=== PATIENT | male | born 1995 | race African-American/Black ===

== ENCOUNTER 2016-09-20 22:40 | Observation (INO) | payer OTHER ==
--- NOTE | ~2016-09-20 | EKG ---
PATIENT: BRITTANY RODRIGUEZ UNIT #: [id number] Ventricular Rate: 83 BPM Atrial Rate: 83 BPM P-R Interval: 180 ms QRS Duration: 100 ms Q-T Interval: 370 ms QTC Calculation(Bezet): 434 ms P Midland: 42 degrees Calculated R Midland: 61 degrees Calculated T Midland: 47 degrees Diagnosis Line: Normal sinus rhythm Diagnosis Line: Normal ECG Diagnosis Line: No previous ECGs available Diagnosis Line: Confirmed by PAXTON PETERSON MD ([id number]) on 09/22/2016 Diagnosis Line: 4:29:45 PM INTERPRETING MD: NICHOLAS HORVATH
--- NOTE | ~2016-09-20 | HP ---
Unit #: [id number] #: [id number] Patient: BRITTANY RODRIGUEZ [id number] [address] [place], [place] [address] [id number] I MR#: [id number] NAME: BRITTANY RODRIGUEZ. ROOM: 05287 Age: 20 Sex: M Admission Date: 09/21/2016 : 1995 Attending Physician: Josué Sanchez M.D. Primary Care Physician: No Primary Care Physician HISTORY AND PHYSICAL CHIEF COMPLAINT Overdose. HISTORY OF PRESENT ILLNESS Patient is a 20-year-old male who I am evaluating in the emergency department. He is completely obtunded and was brought in this way. He is unable to provide me with any sort of history whatsoever. The patient's tox screen is entirely negative, however. PAST MEDICAL HISTORY I am unable to obtain given the patient's presentation. Medical records from [facility] indicate he has a history of chronic paranoid schizophrenia with no known medical problems. PAST SURGICAL HISTORY None. HOME MEDICATIONS Unknown. ALLERGIES Pineapples, Geodon, Abilify, cinnamon, Thorazine. REVIEW OF SYSTEMS Unable to obtain. PHYSICAL EXAMINATION VITAL SIGNS: Temperature 97.6, pulse 78, blood pressure 128/68. GENERAL: A 20-year-old male who is somewhat obtunded, who appears stated age. HEENT: Pupils equally round. Extraocular movements intact. Mucous membranes dry. NECK: Supple. No JVD. No lymphadenopathy. CARDIAC: Regular rate and rhythm. No murmurs, gallops, or rubs. LUNGS: Clear to auscultation bilaterally. ABDOMEN: Nontender, nondistended. Positive bowel sounds. EXTREMITIES: No clubbing, cyanosis, or edema. They are warm and dry. PSYCHIATRIC: Unable to obtain, the patient is not cooperative with the exam. NEUROLOGIC: The patient is arousable and answered two questions for me, both orientation questions and his responses were incorrect. Otherwise, he has gone back to sleep and refuses to answer any more questions. SKIN: No rashes, bruises, or ulcers. MUSCULOSKELETAL: No muscle swelling. No joint swelling. Unit #: [id number] #: [id number] Patient: BRITTANY RODRIGUEZ DIAGNOSTIC STUDIES LABORATORY: Chemistries are normal. Depakene level is 36. CBC is normal. As mentioned, tox screen is negative. IMAGING: None. ASSESSMENT AND PLAN 1. Encephalopathy: The cause is not entirely clear at this time. It is unclear if this is some sort of drug overdose which is it initially presumed to be or if this is some sort of psychosis. The patient's vital signs are stable and he has been started on IV fluids. Psych consult has been obtained. The patient was placed on a 72-hour hold in the emergency department. 2. Prophylaxis: The patient will be started on sequential compression devices. Dictated by Josué Sanchez M.D. MIKE/cecil TD: 09/21/2016 15:51 JOB #: [id number] HISTORY AND PHYSICAL Page 1 of 1 X Josué Sanchez MD HISTORY AND PHYSICAL
--- NOTE | ~2016-09-20 | CO ---
Unit #: [id number] #: [id number] Patient: LEO RODRIGUEZ [id number] [facility] [address] [facility]. [place], [place] [address] [id number] I MR#: [id number] NAME: LEO RODRIGUEZ. ROOM: 568 Age: 20 Sex: M Admission Date: 09/21/2016 : 1995 Attending Physician: Bhumi Peacock M.D. Consultation Date: 09/22/2016 CONSULTATION REPORT JOB NOTE: VERIFY MRN. INFORMANTS The patient reliability, fair; chart reliability, good. CHIEF COMPLAINT "I don't know." HISTORY OF PRESENT ILLNESS Leo Rodriguez is a 20-year-old male, seen on 09/22/2016 at [facility] on 568, bed 1. The patient was compliant, cooperative, currently has a sitter. The patient was unable to give any reliable information. Reports that he has a history of receiving treatment from [facility]. The patient was apparently admitted after an overdose. The patient was drowsy and altered mental status at the time of admission, but pleasant and cooperative during interview. Guarded and paranoid during interview. The patient has a history of chronic paranoid schizophrenia and reports takes medication regularly. Currently denied any thoughts of harming self or others, but disorganized behavior, disorganized thought process, guarded, and paranoid. PAST PSYCHIATRIC HISTORY Remarkable for history of previous treatment at [facility] as a child as well as adult. Last admission was in 2015. MEDICAL HISTORY Unremarkable. MEDICATION HISTORY None. ALLERGIES No known drug allergies. FAMILY HISTORY AND SOCIAL HISTORY The patient has a poor support system. The patient was in a residential program. No history of any abuse. The patient denied any use of any drugs or alcohol. REVIEW OF SYSTEMS Complete review of systems is unremarkable. MENTAL STATUS EXAMINATION General appearance; the patient thin built, casually dressed. Attention Unit #: [id number] #: [id number] Patient: LEO RODRIGUEZ span and concentration, poor. Speech, disorganized. Oriented in place and self. Mood and affect, labile. Thought process, circumstantial. Thought content, guarded and paranoid. Denied any thoughts of harming self or others, but recent overdose. Recent and remote memory, poor. Language, able to name object and repeat phrases. Fund of knowledge, poor. Insight and judgment, impaired. DIAGNOSES Psychiatric: Schizophrenia, chronic paranoid type, F20.0; mood disorder, not otherwise specified, F32.9. Secondary diagnosis: Deferred. Medical diagnosis: Please refer to H and P. Stressors: Psychosocial stressors. ASSESSMENT/PLAN 1. Supportive psychotherapy and psychoeducation provided to the patient. 2. Educated about benefits and side effects of medication and course and prognosis of illness. 3. Recommending at this time, the patient to be transferred to [facility] for inpatient psychiatric treatment. Please feel free to call if any questions, telephone #[phone]. Dictated by... Srinivasan Weems/rosendo TD: 09/24/2016 02:02 JOB #: [id number] CONSULTATION REPORT Page 1 of 1 X Roni Monae MD X CONSULTATION REPORT
[2016-09-20 23:02] LABS: BASOPHIL% 0.4 % (0-2.5); EOSINOPHIL# 0.1 X10e3 (0-0.7); EOSINOPHIL% 0.7 % (0.0-7.0); HEMOGLOBIN 13.2 gm/dL (13.0-16.0); LYMPHOCYTE# 2.7 X10e3 (1.0-3.5); MEAN CELL VOLUME 86.1 FL (83-96); MEAN CORPUSCULAR HEMOGLOBIN 27.1 PG (28-34); MEAN CORPUSCULAR HGB CONC 31.5 g/dL (30-36); MEAN PLATELET VOLUME 11.2 FL (6.5-11.5); MONOCYTE# 0.7 X10e3 (0-1.0); MONOCYTE% 7.3 % (3.0-12.0); NEUTROPHIL# 5.4 X10e3 (1.5-7.1); NEUTROPHIL% 60.6 % (40-75); PLATELET COUNT 177 X10e3 (140-420); RED BLOOD COUNT 4.88 X10e (3.90-5.60); RED CELL DISTRIBUTION WIDTH 14.1 % (11.0-15.5); WHITE BLOOD COUNT 8.9 X10e3 (4.0-10.5)
[2016-09-20 23:04] LABS: DIFF IND NO
[2016-09-20 23:28] LABS: ALBUMIN SERUM 4.1 g/dL (3.5-5.0); ALKALINE PHOSPHATASE 70 U/L (32-92); ALT (SGPT) 21 U/L (10-40); AST (SGOT) 31 U/L (10-42); BILIRUBIN, DIRECT 0.1 mg/dL (0.0-0.2); BILIRUBIN,INDIRECT 0.6 mg/dL (0.0-0.9); BILIRUBIN,TOTAL 0.7 mg/dL (0.2-2.0); BLOOD UREA NITROGEN 12 mg/dL (9-23); CALCIUM SERUM 9.2 mg/dL (8.4-10.2); CARBON DIOXIDE 26 mmol/L (22-31); CHLORIDE 103 mmol/L (100-111); CREATININE SERUM 1.1 mg/dL (0.6-1.4); DEPAKENE (VALPROIC ACID) 36 ug/mL (50-125); GLOM FILT RATE Estimated 110.7 mL/min (>60); GLUCOSE FASTING 123 mg/dL (70-110); POTASSIUM 3.6 mmol/L (3.5-5.1); SALICYLATE <4.0 mg/dL; SODIUM 139 mmol/L (135-145)
[2016-09-20 23:29] LABS: ACETAMINOPHEN <10 ug/mL; ALCOHOL BLOOD <5 mg/dL (0)
[2016-09-21 14:56] LABS: AMPHETAMINE NEG (NEG); BARBITURATES NEG (NEG); BENZODIAZEPINES NEG (NEG); COCAINE NEG (NEG); MARIJUANA NEG (NEG); OPIATES NEG (NEG); TRICYCLIC ANTIDEPRESSANTS NEG (NEG); U METHADONE NEG (NEG)
[2016-09-21] MEDS ORDERED: RISPERDAL3 MG PO (21:37)
[2016-09-21] MEDS ORDERED: COGENTIN1 M1 PO (21:37)
[2016-09-21] MEDS ORDERED: DEPAKOTE PO (21:38)
[2016-09-21] MEDS ORDERED: PROPRANOLOL PO (21:38)
== END 2016-09-23 10:31 ==
LOC: CED 22:40 → CEDOF 09-21 03:45 → C5C 09-21 17:15
PROVIDERS: Emergency Medicine
DX: G93.40 Encephalopathy, unspecified (principal); F20.0 Paranoid schizophrenia; F32.9 Major depressive disorder, single episode, unspecified; F17.200 Nicotine dependence, unspecified, uncomplicated; Z88.8 Allergy status to other drugs, medicaments and biological substances; Z91.018 Allergy to other foods
CPT/HCPCS: 36415; 80048; 80076; 80164; 80307; 85025; 93005; 96360; 99285; G0378; G0480; J2405

== ENCOUNTER 2016-09-23 10:42 | Inpatient (IN) | payer OTHER ==
--- NOTE | ~2016-09-23 | PN ---
Unit #: [id number] #: [id number] Patient: LEO RODRIGUEZ [id number] [facility] [address] [place] [address] [id number] I MR#: [id number] NAME: LEO RODRIGUEZ. ROOM: P130 Age: 20 Sex: M Admission Date: 09/23/2016 : 1995 Attending Physician: Roni Monae M.D. Admitting Physician: Roni Monae M.D. Primary Care Physician: Bonifacio Doctor Not In System [employer] PROGRESS NOTES DATE OF SERVICE: 09/26/2016 DISCUSSION Leo Rodriguez is a 20-year-old male, seen on 09/26/2016. The patient interviewed, chart reviewed, and obtained information from nursing staff. The patient reported still hearing voices, having hallucination, thoughts of harming himself, voices telling him to harm himself. The patient reports medicine is helping him. The patient's vital signs; temperature 97.6, pulse 86, respirations 19, and blood pressure 150/50. The patient was isolative, guarded, flat affect. The patient was unkempt, disheveled. Complete review of systems unremarkable. MENTAL STATUS EXAMINATION General appearance, the patient dressed casually. Attention span and concentration, poor. Oriented in place and person. Mood and affect; sad, depressed. Speech, monotone. Thought process, concrete. The patient reported having hallucination, thoughts of harming himself, passive, no plans. Recent and remote memory, poor. Insight and judgment, poor. DIAGNOSIS Schizophrenia, chronic paranoid type. ASSESSMENT AND PLAN Advised to continue with current medication with a plan to start the patient on injection, Haldol Decanoate 100 mg deep intramuscularly when the patient is discharged. In the meantime, continue with the inpatient program. Plan is to make further adjustment of medication if needed if no improvement. Dictated by... Roni Monae M.D. NATALI/rosendo TD: 09/26/2016 20:59 JOB #: [id number] Unit #: [id number] #: [id number] Patient: LEO RODRIGUEZ [facility] PROGRESS NOTES Page 1 of 1 X Roni Monae MD PROGRESS NOTE
--- NOTE | ~2016-09-23 | PN ---
Unit #: [id number] #: [id number] Patient: LEO RODRIGUEZ [id number] [facility] [address] [place] [address] [id number] I MR#: [id number] NAME: LEO RODRIGUEZ. ROOM: P130 Age: 20 Sex: M Admission Date: 09/23/2016 : 1995 Attending Physician: Roni Monae M.D. Admitting Physician: Roni Monae M.D. Primary Care Physician: Generic Doctor Not In System [facility] PROGRESS NOTES DATE 09/28/2016 DISCUSSION Mr. Leo Rodriguez is a 20-year-old male, seen on 09/28/2016. The patient interviewed, chart reviewed, and obtained information from the nursing staff. The patient tolerating the medication fairly well, seclusive, isolative, flat affect, guarded. The patient taking his medication regularly, still reporting hallucinations, suicidal ideation, but no plans. REVIEW OF SYSTEMS Complete review of systems unremarkable. MENTAL STATUS EXAMINATION General appearance: Patient dressed casually. Attention span and concentration, fair. Oriented to time, place, and person. Mood and affect, sad and dysphoric. Speech, monotone. Thought process, concrete. The patient denied any thoughts of harming others but having suicidal ideation, hallucinations. Recent and remote memory, poor. Insight and judgment, poor. DIAGNOSIS Schizophrenia, chronic paranoid type. ASSESSMENT/PLAN Advised to continue with the current medication and therapeutic protocol and if needed consider further adjustment of medication. Dictated by... Srinivasan Weems/walter TD: 10/01/2016 06:12 JOB #: [id number] Unit #: [id number] #: [id number] Patient: LEO RODRIGUEZ [facility] PROGRESS NOTES Page 1 of 1 X Roni Monae MD PROGRESS NOTE
--- NOTE | ~2016-09-23 | PN ---
Unit #: [id number] #: [id number] Patient: LEO RODRIGUEZ [id number] [facility] [address] [place] [address] [id number] I MR#: [id number] NAME: LEO RODRIGUEZ. ROOM: P130 Age: 20 Sex: M Admission Date: 09/23/2016 : 1995 Attending Physician: Roni Monae M.D. Admitting Physician: Roni Monae M.D. Primary Care Physician: Generic Doctor Not In System [facility] PROGRESS NOTES DATE OF SERVICE: 09/29/2016 DISCUSSION Leo Rodriguez is a 20-year-old male, seen on 09/29/2016. The patient interviewed, chart reviewed, and obtained information from nursing staff. The patient is compliant with medication, still seclusive, isolative, guarded, but maintained safe behavior. Reports voices are better. Vital signs stable; temperature 98.1, pulse 70, respirations 20, and blood pressure 93/47. Complete review of systems unremarkable. MENTAL STATUS EXAMINATION General appearance, the patient dressed casually. Attention span and concentration, fair. Oriented in place and person. Mood and affect; sad, dysphoric, flat. Speech, monotone. Thought process, concrete. The patient denied any thoughts of harming self or others, but guarded and paranoid. Recent and remote memory, poor. Insight and judgment, poor. DIAGNOSIS Schizophrenia, chronic paranoid type. ASSESSMENT AND PLAN Advised to continue with current medication and therapeutic protocol with a plan to consider discharge next week with followup in transition program. The patient will receive Haldol Decanoate shot 100 mg deep intramuscularly on the day of discharge. Dictated by... Srinivasan Weems/rosendo TD: 09/30/2016 19:21 JOB #: [id number] Unit #: [id number] #: [id number] Patient: LEO RODRIGUEZ [facility] PROGRESS NOTES Page 1 of 1 X Roni Monae MD PROGRESS NOTE
--- NOTE | ~2016-09-23 | PN ---
Unit #: [id number] #: [id number] Patient: LEO RODRIGUEZ [id number] [facility] [address] [place] [address] [id number] I MR#: [id number] NAME: LEO RODRIGUEZ. ROOM: P130 Age: 20 Sex: M Admission Date: 09/23/2016 : 1995 Attending Physician: Roni Monae M.D. Admitting Physician: Roni Monae M.D. Primary Care Physician: Generic Doctor Not In System [facility] PROGRESS NOTES DATE 09/24/2016 DISCUSSION Leo Rodriguez is a 20-year-old male, seen on 09/24/2016. The patient interviewed, chart reviewed, and obtained information from the nursing staff. The patient was compliant and cooperative during the interview. Mood sad and dysphoric, flat affect, and guarded, isolative, attending to internal stimuli. The patient still having hallucinations. REVIEW OF SYSTEMS Complete review of systems unremarkable. MENTAL STATUS EXAMINATION General appearance: Patient dressed casually. Attention span and concentration, poor. Oriented to place and person. Mood and affect, sad, dysphoric, flat affect. Speech, monotone. Thought process, guarded and paranoid. Denied any thoughts of harming self or others but guarded. Recent and remote memory, poor. Insight and judgment, poor. DIAGNOSIS Schizophrenia, chronic paranoid type. ASSESSMENT/PLAN Advised to continue with the current medication and therapeutic protocol and if needed consider further adjustment of medication. Dictated by... Srinivasan Weems/walter TD: 09/26/2016 07:52 JOB #: [id number] Unit #: [id number] #: [id number] Patient: LEO RODRIGUEZ [facility] PROGRESS NOTES Page 1 of 1 X Roni Monae MD PROGRESS NOTE
--- NOTE | ~2016-09-23 | PN ---
Unit #: [id number] #: [id number] Patient: LEO RODRIGUEZ [id number] [facility] [address] [place] [address] [id number] I MR#: [id number] NAME: LEO RODRIGUEZ. ROOM: P130 Age: 20 Sex: M Admission Date: 09/23/2016 : 1995 Attending Physician: Roni Monae M.D. Admitting Physician: Roni Monae M.D. Primary Care Physician: Generic Doctor Not In System [facility] PROGRESS NOTES DATE 09/27/2016 DISCUSSION Leo Rodriguez is a 20-year-old male seen on 09/27/2016. Patient interviewed. Chart reviewed. Obtained information from nursing staff. Patient compliant with medication. No side effects from medication. Still guarded, paranoid, flat affect, sad, dysphoric. Patient tolerating medication fairly well. Still reporting hearing voices, voices telling him to harm himself. No side effects from medication. Complete review of system unremarkable. MENTAL STATUS EXAMINATION General appearance, patient dressed casually. Hygiene and grooming was poor, flat affect, withdrawn, isolative, guarded. Oriented in place and person. Mood and affect sad, dysphoric, flat. Speech monotone. Thought process circumstantial. Thought content, reported hallucination, voices telling him to harm himself. Recent and remote memory poor. Insight and judgement poor. DIAGNOSIS Schizophrenia, chronic paranoid type. ASSESSMENT/PLAN Advised to continue with current medication and therapeutic protocol. If needed, consider further adjustment of medication. Dictated by... Srinivasan Weems/marcos TD: 09/30/2016 16:22 JOB #: [id number] Unit #: [id number] #: [id number] Patient: LEO RODRIGUEZ [facility] PROGRESS NOTES Page 1 of 1 X Roni Monae MD PROGRESS NOTE
--- NOTE | ~2016-09-23 | HP ---
Unit #: [id number] #: [id number] Patient: LEO RODRIGUEZ [id number] [facility] [address] [place] [address] [id number] I MR#: [id number] NAME: LEO RODRIGUEZ. ROOM: P130 Age: 20 Sex: M Admission Date: 09/23/2016 : 1995 Attending Physician: Roni Monae M.D. Admitting Physician: Roni Monae M.D. Primary Care Physician: Generic Doctor Not In System HISTORY AND PHYSICAL HISTORY OF PRESENT ILLNESS Leo is a 20 year old admitted to [address] [place] [address] with depression and after an alleged overdose. He was treated at [facility] and when medically stable transferred to [facility] for psychiatric care. PAST MEDICAL HISTORY 1. Chronically elevated CPK. a. Genetic disorder of muscle metabolism, RYR1 gene mutation. 2. Chronic renal insufficiency. PAST SURGICAL HISTORY Muscle biopsy. ALLERGIES Geodon, Abilify. SOCIAL HISTORY Smokes one-half pack per day. Drinks alcohol and denies illicit drug use. FAMILY HISTORY Medically noncontributory. REVIEW OF SYSTEMS CONSTITUTIONAL: No fever or chills. HEENT: Denies any sore throat, ear pain or runny nose. CARDIOVASCULAR: Denies chest pain, irregular heart rhythm or palpitations. CHEST: Denies shortness of breath or cough. No hemoptysis. GASTROINTESTINAL: Denies nausea, vomiting, diarrhea or chronic constipation. ENDOCRINE: Denies history of increased thirst or urination. No recent significant weight loss or gain. GENITOURINARY: Denies dysuria, frequency, or hematuria. SKIN: Denies any rashes. HEMATOLOGIC: Denies history of increased bleeding or bruising. MUSCULOSKELETAL: Denies any hot, swollen joints. No generalized muscle pain. NEUROLOGIC: Denies problems with vision or speech. No frequent, severe headaches. No numbness, tingling or weakness in any extremities. Denies loss of bladder or bowel control. Unit #: [id number] #: [id number] Patient: LEO RODRIGUEZ CURRENT MEDICATIONS 1. Inderal 20 mg b.i.d. 2. Cogentin 1 mg b.i.d. 3. Risperdal 3 mg b.i.d. 4. Milk of Magnesia p.r.n. 5. Maalox p.r.n. 6. Tylenol p.r.n. PHYSICAL EXAMINATION GENERAL: Alert, well-nourished, in no apparent distress. VITAL SIGNS: Blood pressure 122/72, heart rate 80, respirations 16, temperature 98.6. WEIGHT: 175 pounds. HEIGHT: 5'10". SKIN: Warm and dry without rash or lesion. HEENT: Normocephalic. TMs not viewed. Oral and nasal passages clear. Conjunctivae clear. Pupils equal, round and reactive to light and accommodation. Extraocular movements intact. NECK: Supple without lymphadenopathy or thyromegaly. HEART: Regular rate and rhythm without murmur. LUNGS: Clear. ABDOMEN: Soft, nontender. : Not done. EXTREMITIES: No evidence of cyanosis, clubbing or edema. Moves all extremities without focal deficit. NEUROLOGICAL: Grossly within normal limits. Cranial Nerves: II: Visual muir are intact. III, IV AND : Extraocular movements are intact. Pupils are equal, round and reactive to light. V: Facial sensation is grossly normal. VII: Facial movements and expression are normal. VIII: Auditory acuity grossly intact. IX, X: Uvula is midline. Phonation is normal. XI: Patient shrugs shoulders and turns head normally. XII: Tongue protrudes in the midline. Sensory and Motor Function: Sensory and motor sensation is grossly normal. Motor: moves all extremities well. Coordination: Gait is normal. Deep Tendon Reflexes: Intact. IMPRESSION Psychiatric admission RECOMMENDATIONS PSYCHIATRIC: Per psychiatrist. MEDICAL: I see no contraindications to participating in facility's activities. MEDICAL PROGNOSIS Good. MEDICAL CONDITION Stable. Dictated by... Shira Cabrera P.A.-C. for Tom Bond M.D. Unit #: [id number] #: [id number] Patient: LEO RODRIGUEZ Manfred PALOMINO/geo TD: 09/24/2016 03:45 JOB #: [id number] HISTORY AND PHYSICAL Page 1 of 1 X Shira Cabrera HISTORY AND PHYSICAL
--- NOTE | ~2016-09-23 | PA ---
Unit #: [id number] #: [id number] Patient: LEO RODRIGUEZ [id number] [facility] [address] [place] [address] [id number] I MR#: [id number] NAME: LEO RODRIGUEZ. ROOM: P130 Age: 20 Sex: M Admission Date: 09/23/2016 : 1995 Date of Assessment: Attending Physician: Roni Monae M.D. Admitting Physician: Roni Monae M.D. PSYCHIATRIC ASSESSMENT INFORMANTS The patient reliability, poor; chart reliability, good. CHIEF COMPLAINT Hallucination. HISTORY OF PRESENT ILLNESS Leo Rodriguez is a 20-year-old male who was on 72-hour hold at at [facility]. The patient reported depression, bipolar disorder, and schizophrenia. The patient reported that he takes Zoloft, Zyprexa, and Cogentin. The patient reported that invisible people keep talking to him, keep him awake, and reports trying to shoot them. The patient reports hearing voices telling him that "you are a bitch. I hope you commit suicide." The patient is having command hallucination, attending to internal stimuli, guarded, paranoid, disorganized behavior, and disorganized thought process. The patient has a long history of psychiatric treatment. Currently presenting with psychotic symptom with suicidal ideation. Needing inpatient admission at this time for psychiatric stabilization. PAST PSYCHIATRIC HISTORY Remarkable for history of previous treatment at [facility]. As a child, the patient was admitted and treated on the inpatient unit. The earliest record available is of 2005. FAMILY HISTORY AND SOCIAL HISTORY The patient has a poor support from family, lives alone. No known history of any abuse. MEDICAL HISTORY Remarkable for RYR1 gene mutation and rhabdomyolysis. Musculoskeletal; muscle strength and tone, no atrophy or abnormal movement. Gait normal. MEDICATION HISTORY The patient is currently on Inderal 20 mg b.i.d., Cogentin 1 mg b.i.d., and Risperdal 3 mg b.i.d. ALLERGIES No known drug allergies. SUBSTANCE ABUSE HISTORY Remarkable for tobacco use, age of onset 17; alcohol, age of onset 15; and marijuana, age of onset 15. Unit #: [id number] #: [id number] Patient: LEO RODRIGUEZ REVIEW OF SYSTEMS HEENT: Eyes, clear. Ears, nose, mouth, and throat; clear. CARDIOVASCULAR: Unremarkable. RESPIRATORY: Unremarkable. GI: Unremarkable. : Unremarkable. SKIN: Unremarkable. LYMPH NODE: Unremarkable. NEUROLOGIC: Unremarkable. ENDOCRINE: Unremarkable. HEMATOLOGIC: Unremarkable. ALLERGIC/IMMUNOLOGIC: Unremarkable. MUSCULOSKELETAL: Muscle strength and tone, no atrophy or abnormal movement. Gait normal. MENTAL STATUS EXAMINATION CONSTITUTIONAL: Measurement of vital signs; temperature 98.4, pulse 77, respirations 18, oxygen saturation 100%, and blood pressure 122/77. Height 5 feet 10 inches and weight 175 pounds. GENERAL APPEARANCE: The patient dressed casually. The patient did not show any facial deformity. MUSCULOSKELETAL: Please see above. PSYCHIATRIC EXAMINATION Description of speech; slow in rate, long pauses. Description of thought process; guarded, paranoid, attending to internal stimuli, command hallucination, suicidal ideation, substance abuse. Description of the patient's judgment: Concerning everyday activity, poor. Social situation, poor. Concerning psychiatric condition, poor. Complete mental status examination; oriented in time, place, and person. Recent and remote memory, poor. Attention span and concentration, poor. Language; able to name object, repeat phrases. Fund of knowledge; aware of current event, passive vocabulary intact. Mood and affect, sad and dysphoric. Insight and judgment, fair to poor. ASSETS AND LIABILITY Assets; the patient is articulate, able to take care of his ADL. Liability, history of chronic mental illness. ADMITTING DIAGNOSES Psychiatric: Schizophrenia, chronic paranoid type. Secondary diagnosis: Deferred. Medical diagnoses: Chronically elevated CPK, history of rhabdomyolysis, chronic renal insufficiency, genetic disorder of muscle metabolism, RYR1 gene mutation. Stressors: Psychosocial stressors. PSYCHIATRIC PLAN, TREATMENT GOAL, AND DISCHARGE PLAN 1. Advised to admit the patient on the inpatient unit. Provide safe, supportive, and structured environment. 2. Ordered labs; CBC, CMP, UA, and UDS. 3. The patient will be monitored for precaution for psychosis. Advised to resume home medication. If needed, consider further adjustment of Unit #: [id number] #: [id number] Patient: LEO RODRIGUEZ medication. 4. Treatment goal is to attain euthymic mood, gain insight into his problem, and learn coping skills. 5. Discharge plan: Plan is to stabilize the patient and consider followup in outpatient program. ESTIMATED LENGTH OF STAY 2 weeks. Dictated by... Srinivasan Weems/rosendo TD: 09/24/2016 21:10 JOB #: [id number] PSYCHIATRIC ASSESSMENT Page 1 of 1 X Roni Monae MD PSYCHIATRIC ASSESSMENT
--- NOTE | ~2016-09-23 | DS ---
Unit #: [id number] #: [id number] Patient: BRITTANY RODRIGUEZ [id number] [facility] [address] [place] [address] [id number] MR#: [id number] NAME: BRITTANY RODRIGUEZ. ROOM: 30 Age: 20 Sex: M Admission Date: 09/23/2016 : 1995 Discharge Date: 09/30/2016 Attending Physician: Roni Monae M.D. Primary Care Physician: Generic Doctor Not In System DISCHARGE SUMMARY REASON FOR ADMISSION Psychosis and suicidal ideation. DIAGNOSTIC STUDIES LABORATORY RESULTS: Unremarkable. HOSPITAL COURSE The patient was admitted to inpatient unit on 09/23/2016 and discharged on 09/30/2016. The patient was treated on the inpatient unit with group therapy, individual therapy, and medication management. The patient responded well with the above modalities of treatment and showed improvement in his affect and mood. Subsequently, the patient was discharged with a plan to follow up in outpatient clinic through [facility]. The patient was discharged on following medications; Risperdal 3 mg b.i.d. for psychosis, Cogentin 1 mg b.i.d. for EPS symptom, Inderal 20 mg b.i.d. for anxiety, and Depakote 500 mg b.i.d. for mood stabilization. Haldol Decanoate 100 mg deep intramuscularly to be given today and then next one due on 10/31/2016. DISCHARGE DIAGNOSES Psychiatric: Schizophrenia, chronic paranoid type. Secondary diagnosis: Deferred. Medical diagnoses: Chronically elevated CPK, history of rhabdomyolysis, chronic renal insufficiency, genetic history of metabolism disorder, RYR1 gene mutation. Stressors: Psychosocial stressors. DISCHARGE INSTRUCTIONS The patient is to follow up in outpatient clinic as per social media campaign manager. CONDITION ON DISCHARGE The patient was pleasant and cooperative. Denied any psychotic symptom or any suicidal ideation. PROGNOSIS Guarded. DIET AND ACTIVITY As tolerated. Unit #: [id number] #: [id number] Patient: BRITTANY RODRIGUEZ Dictated by... Srinivasan Weems/rosendo TD: 09/30/2016 15:14 JOB #: [id number] DISCHARGE SUMMARY Page 1 of 1 X Roni Monae MD DISCHARGE SUMMARY
--- NOTE | ~2016-09-23 | PN ---
Unit #: [id number] #: [id number] Patient: LEO RODRIGUEZ [id number] [facility] [address] [place] [address] [id number] MR#: [id number] NAME: LEO RODRIGUEZ. ROOM: P130 Age: 20 Sex: M Admission Date: 09/23/2016 : 1995 Attending Physician: Roni Monae M.D. Admitting Physician: Roni Monae M.D. Primary Care Physician: Generic Doctor Not In System [facility] PROGRESS NOTES DATE OF SERVICE 09/25/2016 DISCUSSION Leo is a 20-year-old male seen on 09/25/2016. The patient interviewed, chart reviewed. Obtained information from nursing staff. The patient was isolative, guarded, flat affect. Sad, dysphoric mood. Reported having suicidal ideation and hallucination. The patient was on Haldol injection, received last 2 months ago. The patient was on Haldol Decanoate 100 mg IM every monthly. Complete Review of Systems: Unremarkable. MENTAL STATUS EXAMINATION General Appearance: The patient dressed casually. Attention span, concentration: Fair. Orientated in place and person. Mood and affect: Sad, dysphoric. Speech: Monotone. Thought process: Ruth. The patient denied any thoughts of harming others but having suicidal ideation, command hallucination, or auditory hallucinations. Recent and remote memory: Poor. Insight and judgment: Poor. DIAGNOSIS Schizophrenia, chronic, paranoid type. ASSESSMENT/PLAN Advised to resume Depakote 500 mg bipolar disorder and injection Haldol Decanoate 100 mg deep intramuscularly, one injection now and every monthly. Continue with Cogentin and Risperdal. If needed, consider further adjustment of medication. Dictated by... Srinivasan Weems/amber TD: 09/27/2016 09:23 JOB #: [id number] Unit #: [id number] #: [id number] Patient: LEO RODRIGUEZ CE PROGRESS NOTES Page 1 of 1 X Roni Monae MD X PROGRESS NOTE
[~2016-09-23 10:42] MED LIST: COGENTIN1 M1 PO; DEPAKOTE PO; PROPRANOLOL PO; RISPERDAL3 MG PO
== END 2016-09-30 13:45 | disposition home or self-care (01) | DRG 885 ==
LOC: POF 10:42 → P1S 11:27
DX: F20.0 Paranoid schizophrenia (principal); G71.2 Congenital myopathies; R45.851 Suicidal ideations; F17.210 Nicotine dependence, cigarettes, uncomplicated; I12.9 Hypertensive chronic kidney disease with stage 1 through stage 4 chronic kidney disease, or unspecified chronic kidney disease; N18.9 Chronic kidney disease, unspecified
CPT/HCPCS: J1631